=== PATIENT | female | born 1995 | race African-American/Black ===

== ENCOUNTER 2019-06-25 22:06 | Emergency (ER) | payer OTHER ==
[~2019-06-25] VITALS: Ht 170.2 cm; Wt 56.7 kg
[~2019-06-25 22:06] MED LIST: IBUPROFEN 800800 M1; IBUPROFEN 800800 MG PO; MACROBID 100 M100 M1 PO; MOTION RELIEF25 MG PO; NO HOME MEDS; NOHOMEMEDICATIONS
[2019-06-26] MEDS ORDERED: FLEXERIL PO (00:39)
[2019-06-26 00:48] VITALS: BP 125/56
== END 2019-06-26 00:54 | disposition home or self-care (01) ==
LOC: ER 22:06
DX: S13.4XXA Sprain of ligaments of cervical spine, initial encounter (principal); S09.8XXA Other specified injuries of head, initial encounter; M25.512 Pain in left shoulder; V89.2XXA Person injured in unspecified motor-vehicle accident, traffic, initial encounter; Y93.89 Activity, other specified; Y92.89 Other specified places as the place of occurrence of the external cause; Y99.8 Other external cause status

== ENCOUNTER 2019-12-10 13:06 | Emergency (ER) | payer OTHER ==
[~2019-12-10] VITALS: Ht 170.2 cm; Wt 57.6 kg
[~2019-12-10 13:06] MED LIST changes: +ALBUTEROL2.5 MG/0.1 INH; +AMOXICILLIN875 MG PO; +FLEXERIL PO; +PREDNISONE 20 M20 MG PO; +VENTOLIN HFA 1818 GM INH
[2019-12-10] MEDS ORDERED: NOHOMEMEDICATIONS (13:34)
[2019-12-10] MEDS ORDERED: PREDNISONE 20 M20 MG PO (14:12)
[2019-12-10 14:56] VITALS: BP 123/57
[2019-12-10] MEDS ORDERED: VENTOLIN HFA 1818 GM INH (15:00)
== END 2019-12-10 14:58 | disposition home or self-care (01) ==
LOC: ER 13:06
DX: J45.901 Unspecified asthma with (acute) exacerbation (principal); F17.200 Nicotine dependence, unspecified, uncomplicated